=== PATIENT | female | born 1995 | race Caucasian/White ===

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

== ENCOUNTER 2018-04-09 17:40 | Emergency (ER) | payer OTHER ==
[~2018-04-09] VITALS: Ht 165.1 cm; Wt 59.0 kg
[~2018-04-09 17:40] MED LIST changes: +KEPPRA250 M1 PO; +POLYTRIM EYE DR10 ML OPH; +TAMIFLU75 M1 PO; +ZOFRAN ODT4 M1 SL
--- NOTE | 2018-04-09 18:16 | ED GENERAL ADULT ---
History of Present Illness General Chief Complaint: Abdominal Pain/Flank Pain Stated Complaint: LFT SIDED ABD PAIN Source: patient Exam Limitations: no limitations Vital Signs & Intake/Output Vital Signs & Intake/Output Vital Signs Date Time Temp Pulse Resp B/P B/P Pulse O2 O2 Flow FiO2 Mean Ox Delivery Rate 04/09 211 98.5 88 16 125/61 98 Room Air 04/09 1801 98 Room Air 04/09 1754 98.5 82 15 116/75 99 Room Air Room Air Allergies Coded Allergies: No Known Allergies (11/26/16) Reconcile Medications Citalopram Hydrobromide (Citalopram HBr) 40 MG TABLET 1 TAB PO DAILY DEPRESSION (Reported) Divalproex Sodium 500 MG TABLET.DR 1 TAB PO DAILY SEIZURES (Reported) Divalproex Sodium (Depakote) 500 MG TABLET.DR 2 TAB PO QPM SEIZURES (Reported ) Ibuprofen 800 MG TABLET 1 TAB PO TID PRN pain Levetiracetam (Keppra) 250 MG TABLET 1 TAB PO QPM SEIZURES (Reported) Multivitamin (Multi-Day Vitamins) 1 EACH TABLET 1 TAB PO DAILY SUPPLEMENT ( Reported) Ondansetron (Zofran Odt) 4 MG TAB.RAPDIS 1 TAB SL TID PRN NAUSEA Ondansetron (Zofran Odt) 4 MG TAB.RAPDIS 1 TAB SL TID PRN nausea Oseltamivir Phosphate (Tamiflu) 75 MG CAPSULE 1 CAP PO BID FLU Polytrim (Polytrim Eye Drops) 10,000 UNIT-1 MG/ML DROPS 1 GTT OPH Q6 conjunctivitis Triage Note: PT TO ED FOR C/C OF LLQ ABD PAIN. PT STARTED MENSES YESTERDAY WITH SEVERE ABD CRAMPS WORSE THAN USUAL WITH NAUSEA. DENIES NAUSEA NOW, BUT PAIN HAS MOVED TO L ABD WORSE WITH AMBULATION. Triage Nurses Notes Reviewed? yes Onset: Gradual Duration: day(s): Timing: cosntant : No Patient currently breastfeeds: No HPI: 22-year-old female with a history of seizures, anxiety, depression presenting with abdominal pain since yesterday. Patient states that she began menstruation yesterday and had her usual menstrual cramps that were diffuse across the entire lower abdomen. Today her pain began to localize to the left lower quadrant and radiated to the left upper quadrant. States that this pain feels different than her usual menstrual pain. She had transient nausea earlier that has since resolved. No prior abdominal surgeries. Denies fevers, vomiting, diarrhea, dysuria, urinary urgency/frequency, vaginal discharge. (Candy Dean) Past History Travel History Traveled to [place] past 21 day No Medical History Any Pertinent Medical History? 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 No (Candy Dean) Review of Systems Review of Systems Constitutional: Reports: no symptoms. EENTM: Reports: no symptoms. Respiratory: Reports: no symptoms. Cardiovascular: Reports: no symptoms. GI: Reports: see HPI. Genitourinary: Reports: no symptoms. Musculoskeletal: Reports: no symptoms. Skin: Reports: no symptoms. Neurological/Psychological: Reports: no symptoms. Hematologic/Endocrine: Reports: no symptoms. Immunologic/Allergic: Reports: no symptoms. All Other Systems: Reviewed and Negative (Candy Dean) Physical Exam Physical Exam General Appearance: well developed/nourished, no apparent distress, alert, awake Comments: Gen.: Well-nourished, well-developed, no acute distress. Head: Normocephalic, atraumatic. Eyes: Normal inspection bilaterally Ears: Normal inspection bilaterally Nose: Normal inspection Neck: Normal inspection Lungs: clear to auscultation bilaterally, normnal breath sounds Heart: regular rate and rhythm Abdomen: soft, nondistended, normal bowel sounds, tender to palpation over the left abdomen with the left lower quadrant greater than left upper quadrant, no rebound or guarding Back: No CVA tenderness Extremities: Normal inspection Neurologic: alert and oriented x3, steady gait Skin: warm and dry Psychiatric: Normal mood and affect, no apparent delusions or hallucinations, behavior appropriate Core Measures ACS in differential dx? No CVA/TIA Diagnosis: No Sepsis Present: No Sepsis Focused Exam Completed? No (Candy Dean) Progress Differential Diagnoses I considered the following diagnoses in my evaluation of the patient: [ Dysmenorrhea versus UTI versus versus ectopic versus spontaneous versus ovarian cyst versus ovarian torsion versus pyelonephritis versus cervicitis/PID] Plan of Care: Orders Procedure Date/time Status URINE 04/09 1816 Complete URINALYSIS 04/09 1816 Complete COMPREHENSIVE METABOLIC PANEL 04/09 1816 Complete CBC WITHOUT DIFFERENTIAL 04/09 1816 Complete Current Medications Sig/Elena Start time Last Medication Dose Stop Time Status Admin Ketorolac 30 MG ONCE ONE 04/09 1815 CAN Tromethamine 04/09 1816 (Toradol) Ondansetron HCl 4 MG ONCE ONE 04/09 1815 CAN (Zofran) 04/09 1816 Sodium Chloride 1,000 ML BOLUS ONE 04/09 1815 CAN (Normal Saline 0.9%) 04/09 1914 Laboratory Tests 04/09/181954: Urine Color YEL, Urine Clarity CLEAR, Urine pH 6.0, Ur Specific [place] 1.020, Urine Protein NEG, Urine Ketones 15 H, Urine Nitrite NEG, Urine Bilirubin NEG, Urine Urobilinogen 0.2, Ur Leukocyte Esterase NEG, Ur Microscopic SEDIMENT EXAMINED, Urine RBC 1-3, Urine WBC RARE, Ur Epithelial Cells RARE, Urine Mucus RARE, Urine Hemoglobin LARGE H, Urine Glucose NEG, Urine Test NEGATIVE 04/09/181914: Anion Gap 10, Estimated GFR > 60, BUN/Creatinine Ratio 18.3, Glucose 82, Calcium 9.8, Total Bilirubin 0.5, AST 22, ALT 40, Alkaline Phosphatase 54, Total Protein 7.5, Albumin 4.5, Globulin 3.0, Albumin/Globulin Ratio 1.5, CBC w Diff NO MAN DIFF REQ, RBC 4.30, MCV 88.0, MCH 29.9, MCHC 33.9, RDW 13.2, MPV 7.9, Gran % 52.7, Lymphocytes % 40.0, Monocytes % 6.3, Eosinophils % 0.6, Basophils % 0.4, Absolute Granulocytes 5.4, Absolute Lymphocytes 4.1 H, Absolute Monocytes 0.7 H, Absolute Eosinophils 0.1, Absolute Basophils 0 Labs unremarkable Urine shows blood from patient's current menses, no signs of infection Ultrasound FINDINGS: The exam is limited transabdominally. Patient had emptied her bladder prior to the study. UTERUS: Unremarkable. Uterus measures 5.7 x 2.8 x 3.8 cm. The total uterine volume is 32 mL. Endometrial thickness 0.2 cm ADNEXA: Neither the right nor the left ovary is seen. There is no adnexal abnormality. Cul-de-sac: No Fluid IMPRESSION: No acute abnormality of pelvis. Patient and her mother were updated on all the above results. They were counseled that the above exam was limited as we could not visualize her ovaries. At this time patient reports complete resolution of her pain after IM Toradol and is requesting to be discharged home. I suspect her pain was likely secondary to dysmenorrhea, ovarian cyst, or both. I have low concern for torsion as the patient is well-appearing and her pain has resolved. The patient and her mother were counseled that we have not fully excluded torsion and that if her pain is worsening she should return immediately for CT scan. They are comfortable with this plan and expressed understanding of the return precautions. Patient will follow up with her COMMERCIAL CREDIT ANALYST tomorrow for reevaluation. Initial ED EKG: none (Candy Dean) Departure Departure Disposition: HOME OR SELF CARE Condition: Stable Clinical Impression Primary Impression: Dysmenorrhea Referrals: Jacqui Montaño MD (PCP/Family) Additional Instructions: Use ibuprofen as needed for pain and Zofran as needed for nausea. Follow-up with your COMMERCIAL CREDIT ANALYST tomorrow for reevaluation. Return to the emergency department for any new or worsening symptoms. Departure Forms: Customer Survey General Discharge Information Prescriptions: Current Visit Scripts Ondansetron (Zofran Odt) 1 TAB SL TID PRN nausea #20 TAB Ibuprofen 1 TAB PO TID PRN pain #60 TAB (Candy Dean) PA/A/C TECH Co-Sign Statement Statement: ED Attending supervision documentation- [] I saw and evaluated the patient. I have also reviewed all the pertinent lab results and diagnostic results. I agree with the findings and the plan of care as documented in the PA's/A/C TECH's documentation. [x] I have reviewed the ED Record and agree with the PA's/A/C TECH's documentation. [] Additions or exceptions (if any) to the PAs/A/C TECH's note and plan are summarized below: [] (Arabella JONES, Celine) Critical Care Note Critical Care Note Critical Care Time: non-applicable (Candy Dean)
[2018-04-09 19:30] LABS: ABSOLUTE BASOPHIL COUNT 0 /CUMM (0.0-0.2); ABSOLUTE EOSINOPHIL COUNT 0.1 /CUMM (0.0-0.7); ABSOLUTE GRANULOCYTE CT 5.4 /CUMM (1.4-6.5); ABSOLUTE LYMPH COUNT 4.1 /CUMM (1.2-3.4); ABSOLUTE MONOCYTE COUNT 0.7 /CUMM (0.10-0.60); BASOPHIL % 0.4 % (0.0-2.0); EOSINOPHIL % 0.6 % (0-5); GRANULOCYTE % 52.7 % (42.2-75.2); HEMATOCRIT 37.8 % (37-47); MEAN CORPUSCULAR HGB 29.9 PG (27.0-31.0); MEAN CORPUSCULAR HGB CONC 33.9 G/DL (33.0-37.0); MEAN PLATELET VOLUME 7.9 FL (7.4-10.4); PLATELET COUNT 336 /CUMM (130-400); RBC DISTRIBUTION WIDTH 13.2 % (11.5-14.5); WHITE BLOOD CELL COUNT 10.3 /CUMM (4.8-10.8)
--- NOTE | 2018-04-09 20:45 | ULTRASOUND REPORT ---
EXAMINATION: Ultrasound of pelvis: CLINICAL INFORMATION: Left lower quadrant pain COMPARISON: None. TECHNIQUE: Transabdominal grayscale study. Patient declined the transvaginal portion of the exam Color Doppler exam was utilized. LMP: 04/08/2018 FINDINGS: The exam is limited transabdominally. Patient had emptied her bladder prior to the study. UTERUS: Unremarkable. Uterus measures 5.7 x 2.8 x 3.8 cm. The total uterine volume is 32 mL. Endometrial thickness 0.2 cm ADNEXA: Neither the right nor the left ovary is seen. There is no adnexal abnormality. Cul-de-sac: No Fluid IMPRESSION: No acute abnormality of pelvis.
[2018-04-09] MEDS ORDERED: IBUPROFEN800 M1 PO (20:55)
[2018-04-09] MEDS ORDERED: ZOFRAN ODT4 M1 SL (20:55)
[2018-04-09 21:12] VITALS: BP 125/61
== END 2018-04-09 21:13 ==
LOC: ERH 17:40
PROVIDERS: Physician Assistant
DX: N94.6 Dysmenorrhea, unspecified (principal)
CPT/HCPCS: 81001; 81025; 96372; J1885; J2405